=== PATIENT | female | born 2000 | race Caucasian/White ===

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

== ENCOUNTER 2021-09-12 09:32 | Emergency (ER) | payer BC ==
[~2021-09-12] VITALS: Ht 167.6 cm; Wt 90.9 kg
[2021-09-12 09:57] LABS: BASO # 0.1 K/mm3 (0.0-0.2); BASO % 0.3 % (0.0-2.0); EOS # 0.1 K/mm3 (0.0-0.7); EOS % 0.5 % (0.0-4.0); GRAN # 19.8 K/mm3 (1.4-6.5); GRAN % 75.6 % (42.2-75.2); HEMATOCRIT 38.3 % (35.0-45.0); HEMOGLOBIN 12.8 g/dl (12.0-15.0); MEAN CELL VOLUME 87 fl (80.0-95.0); MEAN CORPUSCULAR HEMOGLOBIN 29 pg (26-32); MEAN CORPUSCULAR HGB CONC 33 g/dl (33.0-37.0); MEAN PLATELET VOLUME 9.3 fl (7.4-10.4); MONO # 1.1 K/mm3 (0.1-0.6); MONO % 4.2 % (1.7-9.3); PLATELET COUNT 290 K/mm3 (130-400); REDCELL DISTRIBUTION WIDTH-CV 12.5 % (11.5-14.5)
[2021-09-12 10:08] LABS: ALANINE AMINOTRANSFERASE 17 U/L (0-55); ALBUMIN 3.9 gm/dL (3.5-5.0); ALKALINE PHOSPHATASE 83 U/L (40-150); ANION GAP 13 mmol/L (7-16); AST,SGOT 13 U/L (5-34); BILIRUBIN,TOTAL 0.4 mg/dL (0.2-1.2); BLOOD UREA NITROGEN 15 mg/dL (8-21); CALCIUM 9.1 mg/dL (8.4-10.2); CARBON DIOXIDE 20 mmol/L (22-29); CHLORIDE 107 mmol/L (98-107); GLUCOSE 99 mg/dL (70-99); LIPASE 14 U/L (8-78); POTASSIUM 3.4 mmol/L (3.5-4.5); SODIUM 140 mmol/L (136-145); TOTAL PROTEIN 7.1 gm/dL (6.2-8.1)
[2021-09-12 10:16] LABS: TROPONIN-I < 0.010 ng/mL (0.00-0.033)
[2021-09-12 10:42] LABS: COLLECTION METHOD CLEAN CATCH
[2021-09-12 10:52] LABS: MUCOUS Present (NOT PRESENT); PH 5 (5-8); URINE APPEARANCE Hazy (CLEAR/HAZY); URINE BACTERIA None Seen /hpf (NONE SEEN); URINE BILIRUBIN Negative (NEGATIVE); URINE BLOOD 1+ (NEGATIVE); URINE COLOR Yellow (YELLOW); URINE GLUCOSE Negative (NEGATIVE); URINE KETONE Negative (NEGATIVE); URINE LEUKOCYTE ESTERASE Negative (NEGATIVE); URINE NITRATE Negative (NEGATIVE); URINE PROTEIN(semi-quant) Negative (NEGATIVE); URINE RBC 0-2 /hpf (0-2); URINE UROBILINOGEN Negative (NEGATIVE)
[2021-09-12] MEDS ORDERED: ZOFRAN ODT4 MG PO (11:53)
[2021-09-12] MEDS ORDERED: BENTYL 10MG10 MG/CAP PO (11:57)
[2021-09-12 12:16] VITALS: BP 110/79; PULSE 99
== END 2021-09-12 12:17 | disposition home or self-care (01) ==
LOC: COL.ER 09:32
PROVIDERS: Emergency Medicine
DX: R11.2 Nausea with vomiting, unspecified (principal); D72.829 Elevated white blood cell count, unspecified
CPT/HCPCS: J2405; J3010; J7120; Q9967

== ENCOUNTER → 2023-07-19 | Outpatient (CLI) | payer BC ==
[~2023-07-19] MED LIST changes: +BENTYL 10MG10 MG/CAP PO; +ZOFRAN ODT4 MG PO
== END ==
LOC: COL.RAD 07:59
DX: M79.641 Pain in right hand (principal)